=== PATIENT | female | born 1975 | race Caucasian/White ===

== ENCOUNTER 2017-03-04 19:14 | Emergency (ER) | payer SELFPAY ==
[2017-03-04] MEDS ORDERED: Take Home: Phenazopyridine 95 MG Tab, 4 Tab Pack ONE (19:44)
[2017-03-04] MEDS ORDERED: Take Home: Ciprofloxacin 500 MG Tab, 2 Tab Pack PO ONE (19:44)
[2017-03-04 20:12] VITALS: BP 120/63
--- NOTE | 2017-03-05 07:48 | ER ---
Date of Service: 03/04/2017 HISTORY OF PRESENT ILLNESS: Winnie presents to the emergency room with complaints of dysuria and urinary frequency since Wednesday. The patient states that she has a history of frequent urinary tract infections and states that she gets 1 approximately every 3 months. She has been educated on urinary tract infection, prevention including voiding after sexual contact, foods to consume to decrease chances of urinary tract infection, proper wiping and hygiene, etc., but states that she continues to have frequent UTIs. She states that previously she was seen approximately [address] Patrick at [facility] for urinary tract infection. She states that she has been fatigued and has felt occasionally chilled but has not been experiencing any recurrent nausea or vomiting. She also does complain of some lower back pain. She states that the symptoms are similar to what she has experienced in the past. PAST MEDICAL HISTORY: Recurrent UTI. MEDICATIONS: None. ALLERGIES: NKDA. REVIEW OF SYSTEMS: General: Positive for chills and low-grade fever. HEENT: No sore throat, rhinorrhea, or congestion. Respiratory: No shortness of breath. Cardiac: Denies any substernal chest pain. No jaw, arm, neck, or back pain. GI: No nausea, vomiting, or diarrhea. No melena, hematochezia, or hematemesis. : Positive for dysuria, frequency, and urgency. She currently has her menstrual period. Extremities: Denies any increased peripheral edema, myalgias, arthralgias. Neurologic: No fainting, blackouts, lightheadedness. PHYSICAL EXAMINATION: General: This is a 41-year-old female patient, who is in no acute distress. Vital Signs: Blood pressure is 120/63, pulse rate is 80, temperature is 37.6, respiratory rate 16, O2 saturations 99%. Skin: Warm, pink, and dry. HEENT: Head is normocephalic, atraumatic. Mouth, oral mucosa is moist. Lungs: Clear to auscultation. Heart: Regular rate and rhythm. Abdomen: Soft and nontender. There is no hepatosplenomegaly noted. There are no masses noted. Extremities: Without edema. Neurologic: She is alert and oriented, answers all questions appropriately. Her speech is fluent. Her gait is within normal limits. LABORATORY DATA: Urinalysis was obtained. Her specific gravity was 1.015. She had small ketones, negative bilirubin, and glucose. She did have a large blood, but again was on her menses. Her pH was 6. She did have 2+ protein, negative urobilinogen, negative nitrites, and large leukocytes. ASSESSMENT: Urinary tract infection. PLAN: The patient will be discharged. The patient was started on Cipro 500 mg once daily for 10 days. I would like her to follow up in the clinic in the next 10 to 14 days to ensure resolution of her infection and to discuss possible referral to Urology due to frequent UTIs. The patient did again discuss proper wiping and hygiene and the importance of drinking plenty of fluids, consuming food such as cranberry juice to acidify the urine. Did advise her to return to the emergency room if she develops any significant low back pain, worsening fever, chills, or she is unable hold down fluids. All questions were answered. ABIGAILK: 03/04/2017 20:25:01 MODL: 03/04/2017 23:43:57 /[id number]
== END 2017-03-04 20:25 | disposition home or self-care (01) ==
LOC: VM.ED 19:14
DX: N39.0 Urinary tract infection, site not specified (principal)
CPT/HCPCS: 81002; 99283; A9270

== ENCOUNTER 2022-04-07 14:59 | Emergency (ER) | payer BC ==
[2022-04-07 15:13] VITALS: BP 156/66; PULSE 67
[2022-04-07] MEDS ORDERED: Lidocaine 1% 5 ML VIAL INJECT ONE (15:15)
[2022-04-07] MEDS ORDERED: Diphtheria,Pertussis(Acell),Tetanus Vaccine 0.5 ML Syringe IM ONE (15:39)
== END 2022-04-07 15:46 | disposition home or self-care (01) ==
LOC: VM.ED 14:59
DX: S61.213A Laceration without foreign body of left middle finger without damage to nail, initial encounter (principal); Z23 Encounter for immunization; W23.0XXA Caught, crushed, jammed, or pinched between moving objects, initial encounter
CPT/HCPCS: 12001; 90471; 90715; 99282-25; 99283

== ENCOUNTER 2023-09-08 21:37 | Emergency (ER) | payer BC ==
[2023-09-08] MEDS: Albuterol/Ipratropium 3.0-0.5 MG/3 ML Neb Soln NEB ONE (21:59)
[2023-09-08 22:04] VITALS: BP 139/72; PULSE 65
[2023-09-08] MEDS: Albuterol 0.083% 2.5 MG/3 ML Neb Soln NEB ONE (22:33)
[2023-09-08 22:47] LABS: CORONAVIRUS COVID-19 NAA NEGATIVE (NEGATIVE); INFLUENZA A NAA NEGATIVE (NEGATIVE); INFLUENZA B NAA NEGATIVE (NEGATIVE); RESPIRATORY SYNCYTIAL VIR NAA NEGATIVE (NEGATIVE)
[2023-09-08] MEDS: Take Home: Albuterol 18 GM Inhaler, 1 Inhaler Pack INH PRN (22:56)
[2023-09-08] MEDS: Take Home: predniSONE 20 MG, 2 Tab Pack PO ONE (22:57)
[2023-09-08] MEDS: Take Home: Codeine/Promethazine 10-6.25 MG/5 ML Syrup 5 ML, 2 Cup Pack PO ONE (22:58)
== END 2023-09-08 23:01 | disposition home or self-care (01) ==
LOC: VM.ED 21:37
DX: J45.909 Unspecified asthma, uncomplicated (principal); J06.9 Acute upper respiratory infection, unspecified; Z20.822 Contact with and (suspected) exposure to COVID-19
CPT/HCPCS: 0241U; 94640; 99285; A9270; J7512; J7613-GY; J7620-GY

== ENCOUNTER 2024-05-18 20:27 | Emergency (ER) | payer BC ==
[2024-05-18] MEDS ORDERED: Sodium Chloride 0.9% 10 ML Syringe FLUSH PRN (20:42)
[2024-05-18 20:56] LABS: BASOPHILS PERCENT AUTO 0.5 % (0.2-1.2); EOSINOPHILS ABSOLUTE AUTO 0.3 x10^3/uL (0.0-0.5); HEMATOCRIT 27.6 % (33.0-47.0); HEMOGLOBIN 9.4 g/dL (12.0-16.0); IMMATURE GRAN ABSOLUTE AUTO 0.01 x10^3/uL (0.00-0.07); LYMPHOCYTES ABSOLUTE AUTO 1.4 x10^3/uL (1.0-4.8); MEAN CORPUSCULAR HEMOGLOBIN 30.5 pg (26.0-32.0); MEAN CORPUSCULAR HGB CONC 34.1 g/dL (32.0-36.0); MEAN CORPUSCULAR VOLUME 89.6 fL (78.0-93.0); MONOCYTES ABSOLUTE AUTO 0.9 x10^3/uL (0.0-0.8); MONOCYTES PERCENT AUTO 10.3 % (2.0-11.0); NEUTROPHILS PERCENT AUTO 70.1 % (50.0-80.0); PLATELET COUNT,PLT 278 x10^3/uL (130-400); RED BLOOD CELL COUNT 3.08 x10^6/uL (4.00-5.50); WHITE BLOOD CELL COUNT,WBC 8.6 x10^3/uL (4.0-10.0)
[2024-05-18] MEDS: Lactated Ringers 1,000 ML IV ONE ×2 (20:58→21:31)
[2024-05-18] MEDS: Ondansetron 4 MG/2 ML SDV IVPUSH ONE (20:59)
[2024-05-18] MEDS: HYDROmorphone 0.5 MG/0.5 ML Syringe IVPUSH ONE ×2 (20:59→23:48)
[2024-05-18 21:00] LABS: APPEARANCE,URINE CLOUDY (CLEAR); BILIRUBIN,URINE NEGATIVE (NEGATIVE); COLOR,URINE YELLOW (YELLOW); GLUCOSE,URINE NEGATIVE (NEGATIVE); KETONES,URINE NEGATIVE (NEGATIVE); LEUKOCYTE ESTERASE,URINE LARGE (NEGATIVE); NITRITE,URINE NEGATIVE (NEGATIVE); OCCULT BLOOD,URINE LARGE (NEGATIVE); PROTEIN,URINE 100 mg/dL (NEGATIVE); UROBILINOGEN,URINE 0.2 EU/dL (0.2)
[2024-05-18 21:12] LABS: BACTERIA,URINE FEW /HPF (NOT SEEN); MUCUS,URINE OCCASIONAL /LPF (NOT SEEN); RBC,URINE 30-40 /HPF (NOT SEEN); SQUAMOUS EPITHELIAL CELLS,UR RARE /HPF (NOT SEEN); WBC,URINE >100 /HPF (NOT SEEN)
[2024-05-18 21:13] LABS: ALANINE AMINOTRANSFERASE,ALT 15 U/L (14-59); ALBUMIN 3.3 g/dL (3.4-5.0); ALKALINE PHOSPHATASE 63 U/L (46-116); AMYLASE 146 U/L (25-115); ANION GAP 17.7 mmol/L (5-15); ASPARTATE AMNIOTRANSFERASE,AST 14 U/L (15-37); BILIRUBIN TOTAL 0.3 mg/dL (0.2-1.0); BLOOD UREA NITROGEN,BUN 36 mg/dL (7-18); C-REACTIVE PROTEIN 7.24 mg/dL (<=0.50); CALCIUM 10.4 mg/dL (8.5-10.1); CARBON DIOXIDE,CO2 22 mmol/L (21-32); CHLORIDE,CL 105 mmol/L (98-107); GLUCOSE RANDOM 120 mg/dL (70-99); LIPASE 23 U/L (19-71); MAGNESIUM 1.9 mg/dL (1.8-2.4); POTASSIUM,K 3.7 mmol/L (3.5-5.1); PROTEIN TOTAL,TP 7.4 g/dL (6.4-8.2); SODIUM,NA 141 mmol/L (136-145)
[2024-05-18 21:14] LABS: CREATININE 3.5 mg/dL (0.55-1.02); ESTIMATED GFR 15 mL/min (>=60)
[2024-05-18 21:15] LABS: LACTIC ACID 0.5 mmol/L (0.4-2.0)
[2024-05-18 21:25] VITALS: BP 134/67; PULSE 78
[2024-05-18] MEDS: cefTRIAXone 1 GM Vial IVPUSH ONE (21:50)
== END 2024-05-19 00:09 | disposition short-term general hospital (02) ==
LOC: VM.ED 20:27
DX: N13.2 Hydronephrosis with renal and ureteral calculous obstruction (principal); N17.9 Acute kidney failure, unspecified
CPT/HCPCS: 74176; 80053; 81001; 81025; 82150; 83605; 83690; 83735; 85025; 86140; 87086; 96361; 96374; 96375; 99285; J0696; J1170; J2405; J7120; 36415

== ENCOUNTER 2025-09-30 08:22 | Emergency (ER) | payer BC ==
[2025-09-30 08:45] LABS: APPEARANCE,URINE TURBID (CLEAR); GLUCOSE,URINE NEGATIVE (NEGATIVE); OCCULT BLOOD,URINE MODERATE (NEGATIVE)
[2025-09-30 08:53] LABS: SQUAMOUS EPITHELIAL CELLS,UR RARE /HPF (NOT SEEN)
[2025-09-30] MEDS: Take Home: Ciprofloxacin 500 MG Tab, 2 Tab Pack PO ONE (09:20)
[2025-09-30 09:31] VITALS: BP 108/60; PULSE 60
== END 2025-09-30 09:20 | disposition home or self-care (01) ==
LOC: VM.ED 08:22
DX: N30.00 Acute cystitis without hematuria (principal); Z79.899 Other long term (current) drug therapy
CPT/HCPCS: 81001; 87086; 99283; 99284; A9270-GY